=== PATIENT | male | born 1960 | race Caucasian/White ===

== ENCOUNTER 2020-10-01 02:45 | Inpatient (IN) ==
[2020-10-01] MEDS ORDERED: LACTATED RINGERS 1,000 ML IV STA (03:54)
[2020-10-01] MEDS ORDERED: DIPHTHERIA/TETANUS ADULT VACCINE 0.5 ML SYRINGE IM ONE (03:54)
[2020-10-01] MEDS ORDERED: MORPHINE 4 MG/1 ML VIAL IV STA (03:54)
[2020-10-01] MEDS ORDERED: ONDANSETRON 4 MG/2 ML VIAL IV STA (03:54)
[2020-10-01 04:28] LABS: Alanine Aminotransferase 38 U/L (16-61); Albumin 3.9 G/DL (3.4-5.0); Alkaline Phosphatase 53 U/L (45-117); Amylase 51 U/L (25-115); Aspartate Amino Transferase 42 U/L (0-37); Bilirubin,Total < 0.39 MG/DL (0.2-1.0); Blood Urea Nitrogen 21 MG/DL (7-18); Calcium 8.4 MG/DL (8.5-10.1); Estimated Glom Filtration Rate 70 ML/MIN; Glucose 110 MG/DL (74-106); Osmolality,Calculated 276.8 MOS/KG (273-304); Total Protein 7.1 G/DL (6.4-8.3)
[2020-10-01 04:47] LABS: Basophils % 0.2 % (0.0-0.8); Eosinophils % 0.2 % (0.00-10.9); Hematocrit 29.2 VOL% (42.0-52.0); Immature Granulocytes % 1.4 %; Lymphocytes # 2.6 10*3/uL (1.4-4.0); Lymphocytes % 12.5 % (21.2-54.2); Mean Corpuscular HGB Conc 34.2 GM/DL (32-36); Mean Corpuscular Volume 97.7 FL (87-102); Mean Platelet Volume 9.8 FL (9.6-12.0); Monocytes % 12.4 % (1.7-12.7); Neutrophils % 73.3 % (38.7-73.9); Platelet Count 298 T/CUMM (130-400); Red Blood Count 2.99 MC/CUMM (3.8-5.5); Red Cell Distribution Width 13.8 % (9.3-17.3)
[2020-10-01 05:17] LABS: Band Neutrophils 1 % (0-10); Hypochromasia Slight; Lymphocytes 10 % (20-55); Microcytosis Slight; Segmented Neutrophils 81 % (50-85); Total Cells Counted 100
[2020-10-01] MEDS ORDERED: ACETAMINOPHEN 325 MG TABLET PO PRN (05:17)
[2020-10-01] MEDS ORDERED: ONDANSETRON 4 MG/2 ML VIAL IV PRN (05:17)
[2020-10-01 05:18] LABS: Platelet Estimate Normal
[2020-10-01] MEDS ORDERED: ONDANSETRON 4 MG/2 ML VIAL IV ONE (05:19)
[2020-10-01] MEDS ORDERED: HYDROmorphone 2 MG/1 ML VIAL IV STA (05:19)
[2020-10-01] MEDS: DEXTROSE 5% NACL 0.45% 1,000 ML IV SCH ×2 (05:34→21:24)
[2020-10-01 05:44] LABS: INR 1.2; PT Patient Result 12.6 SECS (9.8-11.9); Partial Thromboplastin Time 24.8 SECS (23.9-33.8)
[2020-10-01 06:48] LABS: Bilirubin,Urine Negative (Negative); Blood, Urine Negative (Negative); Glucose,Urine (UA) Negative (Negative); Ketones,Urine Negative (Negative); Nitrite,Urine Negative (Negative); Protein,Urine Negative; RBC,Urine 2 /HPF (0-4); Urine Appearance CLEAR (Clear); Urine Color Colorless (Yellow); Urine Specific Gravity 1.021 (1.001-1.035); Urine Urobilinogen < 2.0 EU/DL (0.2-1.0)
[2020-10-01 06:52] LABS: Barbiturates Screen,Urine Negative (Negative); Benzodiazepines Screen,Urine Positive (Negative); Cannabinoid Screen,Urine Negative (Negative); Opiate Screen,Urine Positive (Negative); Phencyclidine Screen,Urine Negative (Negative)
[2020-10-01] MEDS: PANTOPRAZOLE 40 MG TABLET PO SCH (08:38)
[2020-10-01] MEDS: HYDROmorphone 2 MG/1 ML VIAL IV PRN ×3 (08:38→19:43)
[2020-10-01] MEDS: ENOXAPARIN 40 MG/0.4 ML SYRINGE SUBCUT SCH (10:35)
[2020-10-01] MEDS: KETOROLAC 30 MG/1 ML VIAL IV PRN (16:12)
[2020-10-02] MEDS: HYDROmorphone 2 MG/1 ML VIAL IV PRN ×5 (00:42→20:01)
[2020-10-02] MEDS: DEXTROSE 5% NACL 0.45% 1,000 ML IV SCH ×4 (03:26→20:12)
[2020-10-02] MEDS: KETOROLAC 30 MG/1 ML VIAL IV PRN (06:28)
[2020-10-02] MEDS: PANTOPRAZOLE 40 MG TABLET PO SCH (09:08)
[2020-10-02] MEDS: ENOXAPARIN 40 MG/0.4 ML SYRINGE SUBCUT SCH (09:14)
[2020-10-02 10:10] LABS: Basophils # 0.1 10*3/uL (0.0-0.2); Basophils % 0.4 % (0.0-0.8); Eosinophils # 0.5 10*3/uL (0.0-0.87); Eosinophils % 4.5 % (0.00-10.9); Hematocrit 30.4 VOL% (42.0-52.0); Hemoglobin 10.3 GM/DL (14.0-18.0); Immature Granulocytes % 0.7 %; Immature Granulocytes Absolute 0.08 #; Lymphocytes # 3.8 10*3/uL (1.4-4.0); Lymphocytes % 34.2 % (21.2-54.2); Mean Corpuscular HGB Conc 33.9 GM/DL (32-36); Mean Corpuscular Volume 99.3 FL (87-102); Mean Platelet Volume 10.2 FL (9.6-12.0); Monocytes % 12.8 % (1.7-12.7); Neutrophils % 47.4 % (38.7-73.9); Platelet Count 264 T/CUMM (130-400); Red Blood Count 3.06 MC/CUMM (3.8-5.5); Red Cell Distribution Width 14.1 % (9.3-17.3); White Blood Count 11.2 T/CUMM (4-12)
[2020-10-03] MEDS: HYDROmorphone 2 MG/1 ML VIAL IV PRN ×6 (00:49→22:07)
[2020-10-03] MEDS: DEXTROSE 5% NACL 0.45% 1,000 ML IV SCH ×3 (04:16→15:50)
[2020-10-03] MEDS: PANTOPRAZOLE 40 MG TABLET PO SCH (08:38)
[2020-10-03] MEDS: ENOXAPARIN 40 MG/0.4 ML SYRINGE SUBCUT SCH (09:35)
[2020-10-04] MEDS: DEXTROSE 5% NACL 0.45% 1,000 ML IV SCH ×2 (01:24→15:21)
[2020-10-04] MEDS: HYDROmorphone 2 MG/1 ML VIAL IV PRN ×7 (05:27→19:42)
[2020-10-04] MEDS ORDERED: fentaNYL 100 MCG/2 ML VIAL ONE (06:27)
[2020-10-04] MEDS ORDERED: MIDAZOLAM 2 MG/2 ML VIAL ONE ×2 (06:27→08:22)
[2020-10-04] MEDS ORDERED: ceFAZolin 1,000 MG in SYRINGE 1 EACH IV ONE (06:30)
[2020-10-04] MEDS ORDERED: ROPIVACAINE 0.5% 30 ML VIAL ONE (06:35)
[2020-10-04] MEDS ORDERED: BACITRACIN OINT 0.9 GM PACK TOP ONE (06:39)
[2020-10-04] MEDS ORDERED: KETAMINE 500 MG/10 ML VIAL ONE (07:21)
[2020-10-04] MEDS ORDERED: PHENYLEPHRINE 1 MG/10 ML SYRINGE IV ONE (07:40)
[2020-10-04] MEDS ORDERED: SODIUM CHLORIDE 0.9% 1,000 ML IV ONE (07:40)
[2020-10-04] MEDS ORDERED: LIDOCAINE 2% 5 ML VIAL ONE (07:40)
[2020-10-04] MEDS ORDERED: GLYCOPYRROLATE 0.4 MG/2 ML VIAL ONE (07:40)
[2020-10-04] MEDS ORDERED: propofoL 200 MG/20 ML VIAL IV ONE (07:40)
[2020-10-04] MEDS ORDERED: SUCCINYLCHOLINE 200 MG/10 ML VIAL ONE (07:40)
[2020-10-04] MEDS ORDERED: EPINEPHrine 1 MG/ML VIAL ONE (07:40)
[2020-10-04] MEDS ORDERED: CALCIUM CHLORIDE 1,000 MG/10 ML VIAL IV ONE (07:40)
[2020-10-04] MEDS ORDERED: ROCURONIUM 50 MG/5 ML VIAL IV ONE (07:40)
[2020-10-04] MEDS ORDERED: SODIUM CHLORIDE 0.9% 100 ML IV ONE (07:40)
[2020-10-04] MEDS ORDERED: DEXAMETHASONE 4 MG/1 ML VIAL ONE (08:00)
[2020-10-04] MEDS ORDERED: ONDANSETRON 4 MG/2 ML VIAL ONE (08:00)
[2020-10-04] MEDS ORDERED: NEOSTIGMINE 10 MG/10 ML VIAL ONE (08:33)
[2020-10-04] MEDS ORDERED: SEVOFLURANE 1 UNIT/15 MINUTE INH ONE (08:33)
[2020-10-04] MEDS ORDERED: MAGNESIUM HYDROXIDE SUSP 30 ML UDCUP PO PRN (08:47)
[2020-10-04] MEDS ORDERED: ONDANSETRON 4 MG/2 ML VIAL IV PRN (09:14)
[2020-10-04 10:45] LABS: Calcium 8.9 MG/DL (8.5-10.1); Osmolality,Calculated 277.4 MOS/KG (273-304)
[2020-10-04] MEDS: ENOXAPARIN 40 MG/0.4 ML SYRINGE SUBCUT SCH (12:21)
[2020-10-04] MEDS: PANTOPRAZOLE 40 MG TABLET PO SCH (12:22)
[2020-10-04] MEDS: ceFAZolin 1,000 MG in SYRINGE 1 EACH IV SCH ×2 (16:44→22:49)
[2020-10-04] MEDS ORDERED: ceFAZolin 1,000 MG in SYRINGE 1 EACH IV SCH (21:30)
[2020-10-05] MEDS: HYDROmorphone 2 MG/1 ML VIAL IV PRN ×6 (00:45→23:02)
[2020-10-05 06:27] LABS: Basophils % 0.2 % (0.0-0.8); Eosinophils % 0.2 % (0.00-10.9); Hematocrit 30.2 VOL% (42.0-52.0); Hemoglobin 10.1 GM/DL (14.0-18.0); Immature Granulocytes % 0.7 %; Immature Granulocytes Absolute 0.13 #; Lymphocytes # 1.5 10*3/uL (1.4-4.0); Lymphocytes % 8.2 % (21.2-54.2); Mean Corpuscular HGB Conc 33.4 GM/DL (32-36); Mean Platelet Volume 10.3 FL (9.6-12.0); Monocytes % 7.7 % (1.7-12.7); Platelet Count 429 T/CUMM (130-400); Red Blood Count 3.05 MC/CUMM (3.8-5.5); Red Cell Distribution Width 13.5 % (9.3-17.3); White Blood Count 18.7 T/CUMM (4-12)
[2020-10-05] MEDS: ENOXAPARIN 40 MG/0.4 ML SYRINGE SUBCUT SCH (10:07)
[2020-10-05] MEDS: PANTOPRAZOLE 40 MG TABLET PO SCH (10:14)
[2020-10-05] MEDS: LORazepam 0.5 MG TABLET PO SCH ×2 (17:43→23:07)
[2020-10-06] MEDS: HYDROmorphone 2 MG/1 ML VIAL IV PRN ×3 (02:44→11:25)
[2020-10-06 05:33] LABS: Basophils # 0.1 10*3/uL (0.0-0.2); Basophils % 0.4 % (0.0-0.8); Eosinophils # 0.4 10*3/uL (0.0-0.87); Eosinophils % 3.6 % (0.00-10.9); Hematocrit 25.4 VOL% (42.0-52.0); Immature Granulocytes % 0.9 %; Lymphocytes # 2.4 10*3/uL (1.4-4.0); Lymphocytes % 20.5 % (21.2-54.2); Mean Corpuscular HGB Conc 33.1 GM/DL (32-36); Mean Corpuscular Volume 98.4 FL (87-102); Mean Platelet Volume 9.9 FL (9.6-12.0); Monocytes % 10.2 % (1.7-12.7); Neutrophils % 64.4 % (38.7-73.9); Platelet Count 360 T/CUMM (130-400); Red Blood Count 2.58 MC/CUMM (3.8-5.5); Red Cell Distribution Width 13.6 % (9.3-17.3); White Blood Count 11.6 T/CUMM (4-12)
[2020-10-06 06:12] LABS: Hemoglobin 8.4 GM/DL (14.0-18.0)
[2020-10-06] MEDS: LORazepam 0.5 MG TABLET PO SCH (08:10)
[2020-10-06] MEDS: PANTOPRAZOLE 40 MG TABLET PO SCH (08:10)
[2020-10-06] MEDS: ENOXAPARIN 40 MG/0.4 ML SYRINGE SUBCUT SCH (08:11)
[2020-10-06 11:37] VITALS: BP 113/61
== END 2020-10-06 14:14 | disposition home or self-care (01) | DRG 516 ==
LOC: N.ED 02:45 → N.EDINP 02:45 → N.3E 07:11
PROVIDERS: ADMIT Surgery; ATTEND Surgery